=== PATIENT | male | born 1935 | race Caucasian/White ===

== ENCOUNTER 2020-12-08 15:08 | Emergency (ER) | payer MEDICARE ==
[~2020-12-08] VITALS: Ht 182.9 cm; Wt 73.0 kg
[~2020-12-08 15:08] MED LIST: ACET-1600 PO; ACET325T14 PO; CROM13SP5 NS; DONE5TAB14 PO; MEMA5TAB PO; OMEP-110 PO; POLY17PO5 PO
--- NOTE | 2020-12-08 15:32 | NUR ---
DAREK GRACE AT BS. PT TO BR, CHANGED INTO GOWN. MONITORS IN PLACE.
[2020-12-08 16:00] LABS: BASOPHILS % (AUTO) 1 % (0-1); EOSINOPHILS % (AUTO) 3 % (1-7); LYMPHOCYTES % (AUTO) 12 % (22-44); MEAN CORPUSCULAR HEMOGLOBIN 21.9 pg (27.5-34.5); MEAN PLATELET VOLUME 7.3 fL (7.4-10.4); MONOCYTES % (AUTO) 13 % (2-9); NEUTROPHILS % (AUTO) 71 % (42-75); PLATELET COUNT 384 x10^3/uL (130-400); RED BLOOD COUNT 4.56 x10^6/uL (4.38-5.82); RED CELL DISTRIBUTION WIDTH 24.6 % (9.4-14.8)
--- NOTE | 2020-12-08 16:06 | NUR ---
PT BACK FROM CT.
[2020-12-08 16:07] LABS: ALANINE AMINOTRANSFERASE 18 U/L (12-78); ALBUMIN 3.3 g/dL (3.4-5.0); ANION GAP 8 mmol/L (5-15); CHLORIDE 107 mmol/L (98-107)
[2020-12-08 16:09] LABS: ALKALINE PHOSPHATASE 111 U/L (45-117); BILIRUBIN,TOTAL 0.2 mg/dL (0.2-1.0); TOTAL PROTEIN 6.9 g/dL (6.4-8.2)
[2020-12-08] MEDS ORDERED: HYDROcodone/APAP 5/325 TABLET ONE (16:12)
--- NOTE | 2020-12-08 16:18 | NUR ---
PT MEDICATED PER EMAR. DAUGHTER AT BS. NAD NOTED
[2020-12-08 16:27] LABS: MD MORPH REVIEW ONLY
[2020-12-08 16:28] LABS: ANISOCYTOSIS 1+; MICROCYTOSIS 1+
[2020-12-08 16:29] LABS: OVALOCYTES 1+; POLYCHROMASIA 2+; TEAR DROPS 1+
[2020-12-08 16:30] LABS: <PLATELET ESTIMATE> ADEQUATE; <PLT MORPHOLOGY> NORMAL PLT MORPH
[2020-12-08] MEDS ORDERED: HYDROcodone/APAP 5/325 TABLET PO ONE (16:30)
[2020-12-08 16:56] VITALS: BP 116/64
--- NOTE | 2020-12-08 17:56 | NUR ---
[facility] TO PICK PT UP AT [phone]. DAUGHTER AT BS. PT TO BR. HUGHES NOTED
--- NOTE | 2020-12-08 18:01 | NUR ---
THIS RN ASSISSTED PT TO DRESS AND GAVE INSTRUCTIONS TO BOTH PT AND HIS DAUGHTER. PT TOLLERATED THE ACTIVITY WELL. PT TO BATHROOM VIA WHEELCHAIR, VOIDED W/O DIFFICULTY AND RTD TO ROOM VIA WHEELCHAIR TO AWAIT TRANSPORT HOME BY [employer]. DAUGHTER AT BEDSIDE.
--- NOTE | 2020-12-08 18:18 | NUR ---
PT D/C HOME TO [place] VIA WHEELCHAIR. PT TRANSPORT BY [facility] [employer] [facility].
== END 2020-12-08 18:23 | disposition home or self-care (01) ==
LOC: ED 18:20
DX: S42.032A Displaced fracture of lateral end of left clavicle, initial encounter for closed fracture (principal); M25.551 Pain in right hip; R94.31 Abnormal electrocardiogram [ECG] [EKG]; W18.30XA Fall on same level, unspecified, initial encounter; Y93.89 Activity, other specified; Y92.89 Other specified places as the place of occurrence of the external cause; Y99.8 Other external cause status
CPT/HCPCS: 36415; 80053; 85025; 93005; 99285

== ENCOUNTER 2021-04-13 09:40 | Observation (INO) | payer MEDICARE ==
[~2021-04-13] VITALS: Ht 182.9 cm; Wt 72.0 kg
[2021-04-13 10:39] LABS: BASOPHILS % (AUTO) 1 % (0-1); EOSINOPHILS % (AUTO) 2 % (1-7); LYMPHOCYTES % (AUTO) 10 % (22-44); MEAN CORPUSCULAR HEMOGLOBIN 19.8 pg (27.5-34.5); MEAN PLATELET VOLUME 7.3 fL (7.4-10.4); MONOCYTES % (AUTO) 14 % (2-9); NEUTROPHILS % (AUTO) 73 % (42-75); PLATELET COUNT 435 x10^3/uL (130-400); RED BLOOD COUNT 5.47 x10^6/uL (4.38-5.82); RED CELL DISTRIBUTION WIDTH 21.1 % (9.4-14.8)
[2021-04-13 10:46] LABS: ANION GAP 2 mmol/L (5-15); CALCIUM 8.7 mg/dL (8.5-10.1); CHLORIDE 109 mmol/L (98-107); CREATININE 0.99 mg/dL (0.7-1.3)
[2021-04-13 10:47] LABS: ALBUMIN 3.7 g/dL (3.4-5.0)
[2021-04-13 10:59] LABS: MEAN CORPUSCULAR HGB CONC 29.5 g/dL (33.2-36.2)
[2021-04-13 11:00] LABS: <RBC MORPHOLOGY> NORMAL; ANISOCYTOSIS 1+; MICROCYTOSIS 1+
[2021-04-13] MEDS ORDERED: CEFTRIAXONE 1,000 MG in DEXTROSE 5% 50 ML IVPB ONE (11:00)
[2021-04-13 11:01] LABS: HYPOCHROMIA 1+; TEAR DROPS 1+
[2021-04-13 11:02] LABS: <PLATELET ESTIMATE> INCREASED; <PLT MORPHOLOGY> NORMAL PLT MORPH; OVALOCYTES 2+
[2021-04-13] MEDS ORDERED: SODIUM CHLORIDE FLUSH 10ML SYR IVF ONE (11:30)
--- NOTE | 2021-04-13 11:52 | NUR ---
PT RESTING WITH EYES OPEN ON GURNEY, NO S/S OF DISTRESS AT THIS TIME. CHART UP FOR RECHECK. DAUGHTER HUONG WEBSTER LEAVING FOR A BREAK, REQUESTS TO BE CALLED WITH ANY UPDATES/PLAN.
--- NOTE | 2021-04-13 12:35 | NUR ---
PT REQUESTED TO USE BR, REQUESTS TOILET. ASSISTED UP TO BSC; PT REQUIRES 2 PERSON ASSIST. PT VOIDED, NO BM. INFORMED PT HE WILL HAVE TO USE URINAL TO VOID D/T UNSTEADINESS. PT BACK IN [facility], NO S/S OF DISTRESS, VSS.
--- NOTE | 2021-04-13 13:00 | NUR ---
REPORTED TO MENDY DIAZ.
[2021-04-13] MEDS ORDERED: SODIUM CHLORIDE FLUSH 10ML SYR IVF PRN (14:00)
[2021-04-13] MEDS ORDERED: SODIUM CHLORIDE 0.9% 1,000 ML IV ONE (14:30)
--- NOTE | 2021-04-13 14:52 | NUR ---
DAUGHTER HUONG [phone]
[2021-04-13] MEDS ORDERED: ONDANSETRON 2MG/ML, 2ML IVPush PRN (15:00)
[2021-04-13] MEDS ORDERED: GABAPENTIN 300 MG CAPSULE PO PRN (15:00)
[2021-04-13] MEDS ORDERED: POLYETHYLENE GLYCOL 17 GM PACKET PO PRN (15:00)
[2021-04-13] MEDS ORDERED: METHOCARBAMOL 500 MG TABLET PO PRN (15:00)
[2021-04-13] MEDS ORDERED: ACETAMINOPHEN 325 MG TABLET PO PRN (15:00)
[2021-04-13] MEDS ORDERED: BISACODYL 10 MG SUPP PR PRN (15:00)
[2021-04-13] MEDS ORDERED: LIDODERM 5% PATCH TD PRN (15:00)
[2021-04-13] MEDS ORDERED: ENALAPRILAT 1.25 MG/ML, 2ML IVPush PRN (15:00)
[2021-04-13] MEDS ORDERED: ONDANSETRON ODT 4 MG PO PRN (15:00)
[2021-04-13] MEDS: [UNRECOGNIZED DRUG - REMARK] HOMEINH SCH ×2 (16:00→21:00)
--- NOTE | 2021-04-13 19:59 | NUR ---
TASK RN NOTE: pt self dc'ed one of his IVs. New 20g IV R FA started prior to transfer.
[2021-04-13 20:15] VITALS: BP 149/74
[2021-04-13 20:28] VITALS: BP 149/74
[2021-04-13] MEDS ORDERED: DONEPEZIL 5 MG TABLET PO SCH (21:00)
[2021-04-13] MEDS ORDERED: MELATONIN 5 MG TABLET PO PRN (21:00)
[2021-04-13] MEDS: MEMANTINE 5MG TABLET PO SCH (22:33)
[2021-04-13 23:18] LABS: MICROSCOPIC AUTO
[2021-04-14 01:09] VITALS: BP 115/76
[2021-04-14 05:58] LABS: ANION GAP 2 mmol/L (5-15); CALCIUM 8.4 mg/dL (8.5-10.1); CHLORIDE 108 mmol/L (98-107)
[2021-04-14 06:08] LABS: BASOPHILS % (AUTO) 2 % (0-1); EOSINOPHILS % (AUTO) 3 % (1-7); LYMPHOCYTES % (AUTO) 15 % (22-44); MEAN CORPUSCULAR HEMOGLOBIN 19.8 pg (27.5-34.5); MEAN PLATELET VOLUME 8.4 fL (7.4-10.4); MONOCYTES % (AUTO) 13 % (2-9); NEUTROPHILS % (AUTO) 68 % (42-75); PLATELET COUNT 360 x10^3/uL (130-400); RED BLOOD COUNT 5.12 x10^6/uL (4.38-5.82); RED CELL DISTRIBUTION WIDTH 21.3 % (9.4-14.8)
[2021-04-14 06:11] LABS: CREATININE 0.68 mg/dL (0.7-1.3)
[2021-04-14] MEDS: OMEPRAZOLE 20 MG CAPSULE.DR PO SCH ×2 (06:14→18:17)
[2021-04-14 06:33] LABS: MEAN CORPUSCULAR HGB CONC 29.7 g/dL (33.2-36.2)
[2021-04-14 06:34] LABS: ANISOCYTOSIS 1+; HYPOCHROMIA 2+; MICROCYTOSIS 2+; OVALOCYTES 2+; TEAR DROPS 1+
[2021-04-14 06:35] LABS: <PLATELET ESTIMATE> ADEQUATE; <PLT MORPHOLOGY> NORMAL PLT MORPH
[2021-04-14 07:20] VITALS: BP 106/61
[2021-04-14] MEDS: MEMANTINE 5MG TABLET PO SCH (08:23)
[2021-04-14] MEDS: [UNRECOGNIZED DRUG - REMARK] HOMEINH SCH ×2 (09:00→16:00)
[2021-04-14] MEDS ORDERED: SENNA/DOCUSATE TABLET PO SCH (09:00)
[2021-04-14] MEDS ORDERED: CEFTRIAXONE 1,000 MG in DEXTROSE 5% 50 ML IVPB SCH (11:30)
[2021-04-14 12:42] VITALS: BP 133/89
[2021-04-14] MEDS ORDERED: SULF1TAB24 PO (14:24)
== END 2021-04-14 18:45 | disposition home or self-care (01) ==
LOC: ED 09:47 → INTOOBSV 13:54 → EDIP 13:54 → 3N 20:18
PROVIDERS: ADMIT Family Medicine; ATTEND Family Medicine
DX: G93.41 Metabolic encephalopathy (principal); D72.829 Elevated white blood cell count, unspecified; R53.1 Weakness; D47.3 Essential (hemorrhagic) thrombocythemia; H35.30 Unspecified macular degeneration; H54.8 Legal blindness, as defined in USA; E78.5 Hyperlipidemia, unspecified; I10 Essential (primary) hypertension; J44.9 Chronic obstructive pulmonary disease, unspecified; F03.90 Unspecified dementia, unspecified severity, without behavioral disturbance, psychotic disturbance, mood disturbance, and anxiety; D64.9 Anemia, unspecified; Z87.19 Personal history of other diseases of the digestive system; Z79.899 Other long term (current) drug therapy; Z86.73 Personal history of transient ischemic attack (TIA), and cerebral infarction without residual deficits
CPT/HCPCS: 36415; 71045; 80048; 81001; 82040; 83605; 84145; 84443; 85025; 87040; 96365; 96366; 97163; 97166; 99284; G0378; J0696; J7030